=== PATIENT | male | born 1940 | race Caucasian/White ===

== ENCOUNTER → 2018-02-28 | Outpatient (CLI) | payer MEDICARE, OTHER ==
[~2018-02-28] MED LIST: ASPIRIN 81M81 MG/TA2 PO; HCTZ 25MG TAB25 MG PO; RAPAFLO8 MG PO; ZESTRIL 10MG10 MG PO; ZOCOR 20MG20 MG PO
== END ==
LOC: COL.LAB 10:03
DX: Z01.812 Encounter for preprocedural laboratory examination (principal)